=== PATIENT | male | born 1960 | race African-American/Black ===

== ENCOUNTER 2019-07-30 00:36 | Emergency (ER) | payer MEDICAID, MEDICARE ==
[~2019-07-30] VITALS: Ht 182.9 cm; Wt 84.0 kg
[2019-07-30] MEDS ORDERED: OXYMETAZOLINE HCL NASAL SPRAY 15ML BOTHNSTRLS SCH (01:00)
[2019-07-30] MEDS ORDERED: TRANEXAMIC ACID 1,000 MG/10 ML TP SCH (01:00)
[2019-07-30] MEDS ORDERED: CLONIDINE 0.2MG TABLET PO ONE (01:45)
[2019-07-30] MEDS ORDERED: AMLODIPINE 2.5MG TABLET PO ONE (01:45)
[2019-07-30 04:31] VITALS: BP 154/69
== END 2019-07-30 04:36 | disposition home or self-care (01) ==
LOC: ER 00:36
DX: R04.0 Epistaxis (principal); I10 Essential (primary) hypertension; Z94.0 Kidney transplant status
CPT/HCPCS: 30901; 99285

== ENCOUNTER 2019-11-18 09:16 | Emergency (ER) | payer MEDICARE ==
[~2019-11-18] VITALS: Ht 180.3 cm; Wt 91.0 kg
[2019-11-18 10:13] LABS: BASOPHILS % 0.6 % (0.0-2.0); EOSINOPHILS % 2.2 % (0.0-5.0); HEMOGLOBIN. 13.3 g/dL (14.0-18.0); LYMPHOCYTES % 18.6 % (20.0-50.0); MEAN CORPUSCULAR HEMOGLOBIN 31.6 pg (28.0-32.0); MEAN CORPUSCULAR VOLUME 94.8 fL (80.0-94.0); MEAN PLATELET VOLUME 9.9 fl (7.4-10.4); MONOCYTES % 6.6 % (2.0-8.0); PLATELET 250 x1000/uL (130-400); RED BLOOD CELL COUNT 4.23 mill/uL (4.7-6.1); RED CELL DISTRIBUTION WIDTH 15.4 % (11.6-14.6)
[2019-11-18 12:57] LABS: CHLORIDE 119 mEq/L (98-107)
[2019-11-18 13:02] LABS: PROTHROMBIN TIME 10.6 sec (9.6-11.0)
[2019-11-18] MEDS ORDERED: FUROSEMIDE 100MG/10ML VIAL IV STA (13:08)
[2019-11-18] MEDS ORDERED: CALCIUM CHLORIDE 1GM/10ML SYR IV ONE ×2 (13:15→13:46)
[2019-11-18] MEDS ORDERED: DEXTROSE 50% WATER 50ML SYRINGE IV ONE (13:15)
[2019-11-18] MEDS ORDERED: ALBUTEROL (0.083%) 2.5MG/3ML NEB HHN ONE (13:15)
[2019-11-18] MEDS ORDERED: SODIUM BICARBONATE 8.4% 1 MEQ/ML 50ML SYR IV ONE (13:15)
[2019-11-18] MEDS ORDERED: INSULIN REGULAR (HUMULIN R) 300UNITS/3ML IV ONE (13:15)
[2019-11-18] MEDS ORDERED: IPRATROPIUM/ALBUTEROL 0.5-3(2.5)MG/3ML NEB HHN PRN (14:00)
[2019-11-18] MEDS ORDERED: DOCUSATE SODIUM 100MG CAPSULE PO PRN (14:00)
[2019-11-18] MEDS ORDERED: HYDROCODONE/ACETAMINOPHEN 5/325MG TABLET PO PRN (14:00)
[2019-11-18] MEDS ORDERED: CLONIDINE 0.1MG TABLET PO PRN (14:00)
[2019-11-18] MEDS ORDERED: ONDANSETRON HCL 4MG/2ML INJ IV PRN (14:00)
[2019-11-18] MEDS ORDERED: ACETAMINOPHEN 325MG TABLET PO PRN (14:00)
[2019-11-18 14:35] VITALS: BP 238/89
== END 2019-11-18 14:39 | disposition left against medical advice (07) ==
LOC: ER 09:16 → ENRESERV 14:17 → ER 14:39 → CANBEDREQ 19:28
DX: I82.629 Acute embolism and thrombosis of deep veins of unspecified upper extremity (principal); I12.0 Hypertensive chronic kidney disease with stage 5 chronic kidney disease or end stage renal disease; N18.6 End stage renal disease; E87.5 Hyperkalemia; Z98.890 Other specified postprocedural states
CPT/HCPCS: 36415; 80053; 82962; 85025; 85610; 93005; 93971; 96374; 96375; 99291; J1815; J1940; J3490

== ENCOUNTER 2020-02-06 03:02 | Inpatient (IN) | payer MEDICARE ==
[~2020-02-06] VITALS: Ht 195.6 cm; Wt 84.9 kg
[2020-02-06] VITALS (12 sets, daily range): BP systolic 157–193; BP diastolic 97–115
[2020-02-06] MEDS ORDERED: PIPERACILLIN/TAZ 3.375G PREMIX 50 ML IV ONE (03:30)
[2020-02-06] MEDS ORDERED: AZITHROMYCIN 500 MG in DEXT 5% WATER 250 ML IV ONE (03:30)
[2020-02-06] MEDS ORDERED: VANCOMYCIN 1 G PREMIX 200 ML IV ONE (03:30)
[2020-02-06 04:00] LABS: CHLORIDE 101 mEq/L (98-107)
[2020-02-06 04:09] LABS: BASOPHILS % 1.2 % (0.0-2.0); EOSINOPHILS % 2.8 % (0.0-5.0); LYMPHOCYTES % 16.1 % (20.0-50.0); MEAN CORPUSCULAR HEMOGLOBIN 30.9 pg (28.0-32.0); MEAN CORPUSCULAR VOLUME 92.3 fL (80.0-94.0); MEAN PLATELET VOLUME 8.4 fl (7.4-10.4); MONOCYTES % 10.3 % (2.0-8.0); NEUTROPHILS % 69.6 % (40.0-76.0); PLATELET 253 x1000/uL (130-400); RED BLOOD CELL COUNT 2.59 mill/uL (4.7-6.1); RED CELL DISTRIBUTION WIDTH 13.8 % (11.6-14.6)
[2020-02-06] MEDS ORDERED: ASPIRIN 81MG TABLET PO ONE (04:30)
[2020-02-06] MEDS ORDERED: ONDANSETRON HCL 4MG/2ML INJ IV ONE (04:30)
[2020-02-06] MEDS ORDERED: LORAZEPAM 2MG/ML CPJ IV ONE (04:30)
[2020-02-06 08:37] LABS: EOSINOPHILS % 2.5 % (0.0-5.0); HEMATOCRIT. 23.4 % (42.0-52.0); HEMOGLOBIN. 7.8 g/dL (14.0-18.0); LYMPHOCYTES % 22.8 % (20.0-50.0); MEAN CORPUSCULAR HEMOGLOBIN 30.4 pg (28.0-32.0); MEAN CORPUSCULAR VOLUME 91.7 fL (80.0-94.0); MEAN PLATELET VOLUME 8.2 fl (7.4-10.4); MONOCYTES % 11.5 % (2.0-8.0); NEUTROPHILS % 62.2 % (40.0-76.0); PLATELET 250 x1000/uL (130-400); RED BLOOD CELL COUNT 2.56 mill/uL (4.7-6.1)
[2020-02-06] MEDS ORDERED: LOSA100T32 PO (08:56)
[2020-02-06] MEDS ORDERED: SEVE800T8 PO (08:56)
[2020-02-06] MEDS ORDERED: CALC668T PO (08:56)
[2020-02-06] MEDS ORDERED: FOLI0.8T23 PO (08:56)
[2020-02-06] MEDS ORDERED: ACETAMINOPHEN 325MG TABLET PO PRN (10:00)
[2020-02-06] MEDS ORDERED: MAGNESIUM/ALUMINUM HYDROXIDE/SIMETHICONE 30ML UDC PO PRN (10:00)
[2020-02-06] MEDS ORDERED: GUAIFENESIN 200MG/10ML SUGAR FREE UDC PO PRN (10:00)
[2020-02-06] MEDS ORDERED: ONDANSETRON HCL 4MG/2ML INJ IV PRN (10:00)
[2020-02-06] MEDS ORDERED: PIPERACILLIN/TAZOBACTAM 3.375 G/VIAL IV SCH (14:00)
[2020-02-06 14:15] LABS: BG BASE EXCESS 3.5 mmol/L (-2.0-2.0); BG CARBOXYHEMOGLOBIN 0.3 % (0.5-1.5); BG DEOXYHEMOGLOBIN 1.7 % (0.0-5.0); BG FRACTION INSPIRED OXYGEN 100; BG HCO3 ACT 28.1 mmol/L (22.0-26.0); BG METHEMOGLOBIN 0.3 % (0.0-1.5); BG OXYGEN SATURATION 98.3 % (92.0-98.5); BG OXYHEMOGLOBIN 97.7 % (94.0-97.0); BG PCO2 42.8 mmHg (35.0-45.0); BG PH 7.435 (7.350-7.450); BG PO2 130.4 mmHg (75.0-100.0); BG TOTAL HEMOGLOBIN 8.8 g/dL (12.0-18.0); BG VENT MODE MASK - NRB
[2020-02-06] MEDS: SODIUM CHLORIDE 0.9% INJ 3ML FLUSH IVF SCH ×2 (14:57→21:47)
[2020-02-06] MEDS: PIPERACILLIN/TAZOBACTAM 2.25 G in DEXTROSE 5% WATER 50 ML IV SCH ×2 (15:04→23:38)
[2020-02-06] MEDS ORDERED: IPRATROPIUM/ALBUTEROL 0.5-3(2.5)MG/3ML NEB HHN SCH (16:00)
[2020-02-06] MEDS: IPRATROPIUM/ALBUTEROL 0.5-3(2.5)MG/3ML NEB ORI SCH ×2 (17:42→21:46)
[2020-02-06] MEDS ORDERED: VANCOMYCIN 1 G PREMIX 200 ML IV SCH (21:00)
[2020-02-06] MEDS ORDERED: ZOLPIDEM TARTRATE 5MG TABLET PO PRN (21:00)
[2020-02-06] MEDS ORDERED: ATORVASTATIN CALCIUM 40MG TABLET PO SCH (21:00)
[2020-02-06] MEDS: METOPROLOL TARTRATE 25MG TABLET PO SCH (21:47)
[2020-02-06] MEDS: AMLODIPINE 2.5MG TABLET PO SCH (21:47)
[2020-02-06 23:56] LABS: HEMATOCRIT 31.2 % (42.0-52.0); HEMOGLOBIN 10.5 g/dL (14.0-18.0)
[2020-02-07] VITALS: BP 123/74
[2020-02-07] MEDS: IPRATROPIUM/ALBUTEROL 0.5-3(2.5)MG/3ML NEB ORI SCH ×6 (00:39→20:54)
[2020-02-07 04:00] VITALS: BP 131/83
[2020-02-07] MEDS: PIPERACILLIN/TAZOBACTAM 2.25 G in DEXTROSE 5% WATER 50 ML IV SCH ×3 (05:52→21:05)
[2020-02-07] MEDS: SODIUM CHLORIDE 0.9% INJ 3ML FLUSH IVF SCH ×3 (05:52→21:05)
[2020-02-07 05:55] LABS: BASOPHILS % 0.8 % (0.0-2.0); EOSINOPHILS % 1.3 % (0.0-5.0); HEMATOCRIT. 27.4 % (42.0-52.0); HEMOGLOBIN. 9.4 g/dL (14.0-18.0); LYMPHOCYTES % 24.3 % (20.0-50.0); MEAN CORPUSCULAR VOLUME 90.4 fL (80.0-94.0); MEAN PLATELET VOLUME 8.1 fl (7.4-10.4); MONOCYTES % 7.4 % (2.0-8.0); NEUTROPHILS % 66.2 % (40.0-76.0); PLATELET 285 x1000/uL (130-400); RED BLOOD CELL COUNT 3.03 mill/uL (4.7-6.1); RED CELL DISTRIBUTION WIDTH 13.7 % (11.6-14.6)
[2020-02-07 08:00] VITALS: BP 143/80
[2020-02-07] MEDS: METOPROLOL TARTRATE 25MG TABLET PO SCH ×2 (08:29→21:05)
[2020-02-07] MEDS: AMLODIPINE 2.5MG TABLET PO SCH ×2 (08:29→21:05)
[2020-02-07] MEDS: ACETAMINOPHEN 325MG TABLET PO PRN ×2 (08:29→21:13)
[2020-02-07 12:29] VITALS: BP 134/90
[2020-02-07] MEDS: FUROSEMIDE 40MG/4ML VIAL IVP SCH (15:09)
[2020-02-07 16:00] VITALS: BP 152/99
[2020-02-07 20:41] VITALS: BP 151/86
[2020-02-08 00:45] VITALS: BP 131/81
[2020-02-08] MEDS: IPRATROPIUM/ALBUTEROL 0.5-3(2.5)MG/3ML NEB ORI SCH ×5 (00:51→21:05)
[2020-02-08 04:00] VITALS: BP 168/92
[2020-02-08] MEDS: PIPERACILLIN/TAZOBACTAM 2.25 G in DEXTROSE 5% WATER 50 ML IV SCH ×3 (05:08→21:03)
[2020-02-08] MEDS: SODIUM CHLORIDE 0.9% INJ 3ML FLUSH IVF SCH ×3 (05:08→21:04)
[2020-02-08] MEDS: CLONIDINE 0.1MG TABLET PO PRN (05:08)
[2020-02-08 06:42] LABS: LDL CHOLESTEROL 106 mg/dL (5-100)
[2020-02-08 06:43] LABS: CREATINE KINASE 79 IU/L (39-308)
[2020-02-08 06:45] LABS: HDL CHOLESTEROL 55 mg/dL (40-59)
[2020-02-08 06:46] LABS: CREATINE KINASE MB FRACTION < 1.0 ng/mL (0.5-3.6)
[2020-02-08 08:41] VITALS: BP 129/83
[2020-02-08] MEDS: FUROSEMIDE 40MG/4ML VIAL IVP SCH (09:13)
[2020-02-08] MEDS: METOPROLOL TARTRATE 25MG TABLET PO SCH ×2 (09:14→20:50)
[2020-02-08] MEDS: AMLODIPINE 2.5MG TABLET PO SCH ×2 (09:14→20:50)
[2020-02-08 12:08] VITALS: BP 137/86
[2020-02-08 16:02] VITALS: BP 149/91
[2020-02-08 20:00] VITALS: BP 162/97
[2020-02-09] VITALS: BP 150/94
[2020-02-09] MEDS: IPRATROPIUM/ALBUTEROL 0.5-3(2.5)MG/3ML NEB ORI SCH ×6 (00:40→21:07)
[2020-02-09 04:00] VITALS: BP 155/98
[2020-02-09] MEDS: PIPERACILLIN/TAZOBACTAM 2.25 G in DEXTROSE 5% WATER 50 ML IV SCH ×3 (05:20→23:11)
[2020-02-09] MEDS: SODIUM CHLORIDE 0.9% INJ 3ML FLUSH IVF SCH ×3 (05:21→23:11)
[2020-02-09 06:15] LABS: BASOPHILS % 0.8 % (0.0-2.0); EOSINOPHILS % 3.9 % (0.0-5.0); HEMATOCRIT. 28.2 % (42.0-52.0); HEMOGLOBIN. 9.6 g/dL (14.0-18.0); LYMPHOCYTES % 22.9 % (20.0-50.0); MEAN CORPUSCULAR HEMOGLOBIN 31.1 pg (28.0-32.0); MEAN CORPUSCULAR VOLUME 91.3 fL (80.0-94.0); MEAN PLATELET VOLUME 8.3 fl (7.4-10.4); MONOCYTES % 10.5 % (2.0-8.0); NEUTROPHILS % 61.9 % (40.0-76.0); PLATELET 293 x1000/uL (130-400); RED BLOOD CELL COUNT 3.09 mill/uL (4.7-6.1); RED CELL DISTRIBUTION WIDTH 14.3 % (11.6-14.6)
[2020-02-09 08:00] VITALS: BP 150/82
[2020-02-09] MEDS: FUROSEMIDE 40MG/4ML VIAL IVP SCH (08:10)
[2020-02-09] MEDS: AMLODIPINE 2.5MG TABLET PO SCH (08:12)
[2020-02-09] MEDS: METOPROLOL TARTRATE 25MG TABLET PO SCH (08:16)
[2020-02-09 12:00] VITALS: BP 161/84
[2020-02-09 16:22] VITALS: BP 145/82
[2020-02-09 20:00] VITALS: BP 164/81
[2020-02-09] MEDS: METOPROLOL TARTRATE 50MG TABLET PO SCH (20:15)
[2020-02-09] MEDS: AMLODIPINE 5MG TABLET PO SCH (20:15)
[2020-02-09] MEDS ORDERED: VANCOMYCIN 500 MG PREMIX 100 ML IV SCH (21:00)
[2020-02-10] VITALS: BP 158/87
[2020-02-10] MEDS: IPRATROPIUM/ALBUTEROL 0.5-3(2.5)MG/3ML NEB ORI SCH ×4 (00:21→12:21)
[2020-02-10 04:00] VITALS: BP 149/95
[2020-02-10] MEDS: PIPERACILLIN/TAZOBACTAM 2.25 G in DEXTROSE 5% WATER 50 ML IV SCH (05:07)
[2020-02-10] MEDS: SODIUM CHLORIDE 0.9% INJ 3ML FLUSH IVF SCH (05:09)
[2020-02-10 08:00] VITALS: BP 177/112
[2020-02-10] MEDS: FUROSEMIDE 40MG/4ML VIAL IVP SCH (08:39)
[2020-02-10] MEDS: AMLODIPINE 5MG TABLET PO SCH (08:44)
[2020-02-10] MEDS: METOPROLOL TARTRATE 50MG TABLET PO SCH (08:44)
[2020-02-10] MEDS: CLONIDINE 0.1MG TABLET PO PRN (10:28)
[2020-02-10] MEDS ORDERED: LOSARTAN POTASSIUM 50 MG TABLET PO SCH (10:30)
[2020-02-10 12:24] VITALS: BP 129/88
== END 2020-02-10 13:26 | disposition home or self-care (01) | DRG 682 ==
LOC: ER 03:02 → 7EST 03:40 → ENRESERV 07:48 → 7EST 12:10 → 6WST 17:26
PROVIDERS: ADMIT Internal Medicine; ATTEND Internal Medicine
PROC: 30233N1 Transfusion of Nonautologous Red Blood Cells into Peripheral Vein, Percutaneous Approach (ICD-10-PCS; principal; 2020-02-06)
DX: N18.6 End stage renal disease (principal); I50.23 Acute on chronic systolic (congestive) heart failure; J18.9 Pneumonia, unspecified organism; J96.21 Acute and chronic respiratory failure with hypoxia; I13.2 Hypertensive heart and chronic kidney disease with heart failure and with stage 5 chronic kidney disease, or end stage renal disease; E46 Unspecified protein-calorie malnutrition; J44.0 Chronic obstructive pulmonary disease with (acute) lower respiratory infection; J44.1 Chronic obstructive pulmonary disease with (acute) exacerbation; I42.9 Cardiomyopathy, unspecified; I27.20 Pulmonary hypertension, unspecified; F17.200 Nicotine dependence, unspecified, uncomplicated; D64.9 Anemia, unspecified; Z20.828 Contact with and (suspected) exposure to other viral communicable diseases; I35.0 Nonrheumatic aortic (valve) stenosis; Z99.2 Dependence on renal dialysis; Z68.22 Body mass index [BMI] 22.0-22.9, adult; Z79.899 Other long term (current) drug therapy
CPT/HCPCS: 36415; 36600; 71045; 80048; 80053; 80061; 80202; 82375; 82550; 82553; 82805; 83605; 83735; 83880; 84484; 85014; 85018; 85025; 86850; 86900; 86920; 87635; 93005; 93306; 99291; J0456; J1940; J2060; J2405; J2543; J3370; J7060; P9016

== ENCOUNTER 2020-03-04 10:24 | Emergency (ER) | payer MEDICARE ==
[~2020-03-04] VITALS: Ht 182.9 cm; Wt 84.0 kg
[~2020-03-04 10:24] MED LIST: CALC668T PO; FOLI0.8T23 PO; LOSA100T32 PO; SEVE800T8 PO
[2020-03-04 12:52] VITALS: BP 163/103
== END 2020-03-04 12:53 | disposition home or self-care (01) ==
LOC: ER 10:38
DX: E87.70 Fluid overload, unspecified (principal); I12.0 Hypertensive chronic kidney disease with stage 5 chronic kidney disease or end stage renal disease; N18.6 End stage renal disease; N18.9 Chronic kidney disease, unspecified; Z99.2 Dependence on renal dialysis
CPT/HCPCS: 71045; 93005; 99283

== ENCOUNTER → 2020-04-20 | Outpatient (CLI) | payer MEDICARE, MEDICAID | END | disposition home or self-care (01) | LOC: RAD 12:29 | PROVIDERS: ATTEND Internal Medicine Cardiovascular Disease | DX: I11.9 Hypertensive heart disease without heart failure (principal) | CPT/HCPCS: 71045 ==

== ENCOUNTER → 2020-04-21 | Outpatient (CLI) | payer MEDICARE, MEDICAID | END | disposition home or self-care (01) | LOC: LAB 08:30 | PROVIDERS: ATTEND Internal Medicine Nephrology | DX: Z20.828 Contact with and (suspected) exposure to other viral communicable diseases (principal); N20.0 Calculus of kidney; N18.9 Chronic kidney disease, unspecified | CPT/HCPCS: 87426 ==

== ENCOUNTER → 2020-04-22 | Outpatient (CLI) | payer MEDICARE, MEDICAID | END | disposition home or self-care (01) | LOC: US 10:07 | PROVIDERS: ATTEND Internal Medicine Nephrology | DX: N18.9 Chronic kidney disease, unspecified (principal); J90 Pleural effusion, not elsewhere classified; Z90.5 Acquired absence of kidney | CPT/HCPCS: 76770 ==

== ENCOUNTER → 2020-08-24 | Outpatient (CLI) | payer MEDICARE, MEDICAID ==
[~2020-08-24] MED LIST changes: +AMI2 PO; +ASPI-1497 PO; +CINA30 PO; +COR3 PO; +DOCU-138 PO; +FAMO-135 PO; +FOLI1TAB63 PO; +P20 PO; +SERT50TA PO
== END | disposition home or self-care (01) ==
LOC: RAD 11:44
PROVIDERS: ATTEND Internal Medicine Nephrology
DX: R06.02 Shortness of breath (principal); I51.7 Cardiomegaly; Z99.2 Dependence on renal dialysis
CPT/HCPCS: 71046

== ENCOUNTER 2021-11-21 18:25 | Inpatient (IN) | payer MEDICARE, MEDICAID ==
[~2021-11-21] VITALS: Ht 182.9 cm; Wt 74.8 kg
[~2021-11-21 18:25] MED LIST changes: +APIX2.5T MT; +AZIT250T12 PO; +CARV25TA47 MT; +CELE200C MT; +CLON0.2T PO; -COR3 PO; -DOCU-138 PO; +HYDR-4135 MT
[2021-11-21] MEDS ORDERED: DILTIAZEM HCL 5MG/ML 5ML VIAL IV ONE ×2 (19:45→21:30)
[2021-11-21] MEDS ORDERED: VANCOMYCIN 1G PREMIX 200 ML IV ONE (19:45)
[2021-11-21] MEDS ORDERED: SODIUM CHLORIDE 0.9% 1000ML BAG (SEPSIS BOLUS) IV ONE (19:45)
[2021-11-21] MEDS ORDERED: PIPERACILLIN/TAZ 3.375G PREMIX 50 ML IV ONE (19:45)
[2021-11-21 20:52] LABS: BASOPHILS % 1.3 % (0.0-2.0); EOSINOPHILS % 1.9 % (0.0-5.0); HEMATOCRIT. 30.4 % (42.0-52.0); HEMOGLOBIN. 10.3 g/dL (14.0-18.0); LYMPHOCYTES % 16.1 % (20.0-50.0); MEAN CORPUSCULAR VOLUME 91.8 fL (80.0-94.0); MEAN PLATELET VOLUME 8.3 fl (7.4-10.4); MONOCYTES % 6.9 % (2.0-8.0); NEUTROPHILS % 73.8 % (40.0-76.0); PLATELET 213 x1000/uL (130-400); RED BLOOD CELL COUNT 3.32 mill/uL (4.7-6.1); RED CELL DISTRIBUTION WIDTH 19.6 % (11.6-14.6)
[2021-11-21 21:03] LABS: CHLORIDE 96 mEq/L (98-107)
[2021-11-21] MEDS ORDERED: VANCOMYCIN 1G PREMIX 200 ML IV NR (22:00)
[2021-11-21] MEDS ORDERED: PIPERACILLIN/TAZ 3.375G PREMIX 50 ML IV NR (22:00)
[2021-11-22] MEDS ORDERED: CLONIDINE 0.1MG TABLET PO PRN (00:45)
[2021-11-22] MEDS ORDERED: DIPHENHYDRAMINE 50MG/ML VIAL IV PRN (00:45)
[2021-11-22] MEDS ORDERED: ONDANSETRON HCL 4MG/2ML INJ IV PRN (00:45)
[2021-11-22] MEDS ORDERED: ZOLPIDEM TARTRATE 5MG TABLET PO PRN (00:45)
[2021-11-22] MEDS ORDERED: ACETAMINOPHEN 325MG TABLET PO PRN ×2 (00:45)
[2021-11-22] MEDS ORDERED: ASPIRIN 81MG TABLET PO ONE (01:00)
[2021-11-22] MEDS: SODIUM CHLORIDE 0.9% INJ 3ML FLUSH IVF SCH ×3 (06:02→21:44)
[2021-11-22] MEDS: HYDRALAZINE 20MG/ML VIAL IV PRN ×2 (06:14→06:50)
[2021-11-22] MEDS ORDERED: DILTIAZEM HCL 5MG/ML 10ML VIAL IV NR (08:45)
[2021-11-22 09:00] VITALS: BP 145/111
[2021-11-22] MEDS ORDERED: CARVEDILOL 12.5MG TABLET PO SCH (09:00)
[2021-11-22] MEDS ORDERED: DILTIAZEM HCL 5MG/ML 5ML VIAL IV NR (09:00)
[2021-11-22] MEDS: LOSARTAN POTASSIUM 100 MG TABLET PO SCH (10:49)
[2021-11-22] MEDS: CINACALCET HCL 30MG TABLET PO SCH (10:50)
[2021-11-22 12:00] VITALS: BP 124/92
[2021-11-22] MEDS ORDERED: CLONIDINE 0.2MG TABLET PO SCH (14:00)
[2021-11-22] MEDS ORDERED: CARVEDILOL 12.5MG TABLET PO NR (14:30)
[2021-11-22] MEDS ORDERED: DILTIAZEM HCL 5MG/ML 5ML VIAL IV PRN (14:30)
[2021-11-22] MEDS ORDERED: CLONIDINE 0.2MG TABLET PO PRN (14:53)
[2021-11-22 15:14] VITALS: BP 145/111
[2021-11-22] MEDS: ASPIRIN 325MG EC TABLET PO SCH (15:41)
[2021-11-22 16:00] VITALS: BP 136/94
[2021-11-22] MEDS ORDERED: DILTIAZEM HCL 60MG TABLET PO SCH (18:00)
[2021-11-22] MEDS: SEVELAMER CARBONATE 800 MG TABLET PO SCH (18:02)
[2021-11-22] MEDS: DILTIAZEM HCL 60MG TABLET PO SCH (18:02)
[2021-11-22 20:00] VITALS: BP 115/83
[2021-11-22] MEDS ORDERED: FAMOTIDINE 20MG TABLET PO SCH (21:00)
[2021-11-22] MEDS: HYDRALAZINE HCL 100MG TABLET PO SCH (21:42)
[2021-11-22] MEDS: CLONIDINE 0.1MG TABLET PO SCH (21:42)
[2021-11-22] MEDS: CARVEDILOL 12.5MG TABLET PO SCH (21:43)
[2021-11-23] VITALS: BP 111/77
[2021-11-23 04:00] VITALS: BP 118/91
[2021-11-23] MEDS: CLONIDINE 0.1MG TABLET PO SCH ×2 (05:27→14:00)
[2021-11-23] MEDS: SODIUM CHLORIDE 0.9% INJ 3ML FLUSH IVF SCH ×2 (05:28→14:00)
[2021-11-23] MEDS: DILTIAZEM HCL 60MG TABLET PO SCH ×3 (05:28→12:00)
[2021-11-23 08:00] VITALS: BP 106/61
[2021-11-23] MEDS: CARVEDILOL 12.5MG TABLET PO SCH (09:00)
[2021-11-23] MEDS ORDERED: FOLIC ACID/VITAMIN B COMP W-C TABLET PO SCH (09:00)
[2021-11-23] MEDS: HYDRALAZINE HCL 100MG TABLET PO SCH (09:00)
[2021-11-23] MEDS: LOSARTAN POTASSIUM 100 MG TABLET PO SCH (09:00)
[2021-11-23] MEDS ORDERED: LOSARTAN POTASSIUM 100 MG TABLET PO SCH (09:00)
[2021-11-23] MEDS ORDERED: ASPIRIN 81MG TABLET PO SCH (09:00)
[2021-11-23] MEDS: SEVELAMER CARBONATE 800 MG TABLET PO SCH ×2 (09:05→13:28)
[2021-11-23] MEDS: ASPIRIN 325MG EC TABLET PO SCH (09:05)
[2021-11-23] MEDS: CINACALCET HCL 30MG TABLET PO SCH (09:05)
[2021-11-23 12:00] VITALS: BP 115/53
[2021-11-23 16:00] VITALS: BP 136/93
[2021-11-23 16:19] LABS: BASOPHILS % 1.1 % (0.0-2.0); EOSINOPHILS % 3.9 % (0.0-5.0); HEMATOCRIT. 32.6 % (42.0-52.0); HEMOGLOBIN. 10.8 g/dL (14.0-18.0); LYMPHOCYTES % 15.8 % (20.0-50.0); MEAN CORPUSCULAR HEMOGLOBIN 31.1 pg (28.0-32.0); MEAN CORPUSCULAR VOLUME 93.5 fL (80.0-94.0); MEAN PLATELET VOLUME 8.7 fl (7.4-10.4); MONOCYTES % 10.9 % (2.0-8.0); NEUTROPHILS % 68.3 % (40.0-76.0); PLATELET 221 x1000/uL (130-400); RED BLOOD CELL COUNT 3.48 mill/uL (4.7-6.1); RED CELL DISTRIBUTION WIDTH 20.3 % (11.6-14.6)
[2021-11-23 16:33] LABS: CHLORIDE 98 mEq/L (98-107)
== END 2021-11-23 16:07 | disposition home or self-care (01) | DRG 308 ==
LOC: ER 18:25 → MICUSO 23:43 → 7WST 11-22 09:25
PROVIDERS: ADMIT Internal Medicine; ATTEND Internal Medicine
PROC: 5A1D70Z Performance of Urinary Filtration, Intermittent, Less than 6 Hours Per Day (ICD-10-PCS; principal; 2021-11-23)
DX: I47.1 Supraventricular tachycardia (principal); N18.6 End stage renal disease; I12.0 Hypertensive chronic kidney disease with stage 5 chronic kidney disease or end stage renal disease; T82.898A Other specified complication of vascular prosthetic devices, implants and grafts, initial encounter; I48.0 Paroxysmal atrial fibrillation; E11.22 Type 2 diabetes mellitus with diabetic chronic kidney disease; D64.9 Anemia, unspecified; J44.9 Chronic obstructive pulmonary disease, unspecified; Y83.2 Surgical operation with anastomosis, bypass or graft as the cause of abnormal reaction of the patient, or of later complication, without mention of misadventure at the time of the procedure; Z99.2 Dependence on renal dialysis; Z87.891 Personal history of nicotine dependence; Z90.5 Acquired absence of kidney; Z79.899 Other long term (current) drug therapy; Z79.82 Long term (current) use of aspirin; Y92.89 Other specified places as the place of occurrence of the external cause
CPT/HCPCS: 36415; 71045; 80053; 83605; 83880; 84145; 84484; 85025; 87070; 87077; 87186; 93005; 99291; C1893; J0360; J1200; J2543; J3370; J3490; J7030

== ENCOUNTER 2022-01-14 12:41 | Emergency (ER) | payer MEDICARE, MEDICAID ==
[~2022-01-14] VITALS: Ht 172.7 cm; Wt 78.0 kg
[2022-01-14 13:22] LABS: BASOPHILS % 1.2 % (0.0-2.0); EOSINOPHILS % 3.2 % (0.0-5.0); HEMATOCRIT. 23.7 % (42.0-52.0); HEMOGLOBIN. 7.9 g/dL (14.0-18.0); LYMPHOCYTES % 20.1 % (20.0-50.0); MEAN CORPUSCULAR HEMOGLOBIN 32.5 pg (28.0-32.0); MEAN CORPUSCULAR VOLUME 97.8 fL (80.0-94.0); MEAN PLATELET VOLUME 7.2 fl (7.4-10.4); NEUTROPHILS % 62.5 % (40.0-76.0); PLATELET 248 x1000/uL (130-400); RED BLOOD CELL COUNT 2.43 mill/uL (4.7-6.1); RED CELL DISTRIBUTION WIDTH 20.1 % (11.6-14.6)
[2022-01-14 13:26] LABS: CHLORIDE 100 mEq/L (98-107)
[2022-01-14] MEDS ORDERED: CEFEPIME HCL 1000MG/VIAL INJ IM ONE (15:30)
[2022-01-14] MEDS: CEFEPIME 1,000 MG in DEXTROSE 5% WATER 50 ML IV SCH ×2 (16:05→16:29)
[2022-01-14 16:21] VITALS: BP 142/78
== END 2022-01-14 16:49 | disposition home or self-care (01) ==
LOC: ER 12:41
DX: T82.838A Hemorrhage due to vascular prosthetic devices, implants and grafts, initial encounter (principal); E11.22 Type 2 diabetes mellitus with diabetic chronic kidney disease; I12.0 Hypertensive chronic kidney disease with stage 5 chronic kidney disease or end stage renal disease; N18.6 End stage renal disease; D63.1 Anemia in chronic kidney disease; Z99.2 Dependence on renal dialysis; Z79.82 Long term (current) use of aspirin; Y84.1 Kidney dialysis as the cause of abnormal reaction of the patient, or of later complication, without mention of misadventure at the time of the procedure; Y92.018 Other place in single-family (private) house as the place of occurrence of the external cause
CPT/HCPCS: 36415; 80053; 85025; 96372; 99283; J0692; J7060

== ENCOUNTER 2022-01-15 15:48 | Inpatient (IN) | payer MEDICARE, MEDICAID ==
[~2022-01-15] VITALS: Ht 193 cm; Wt 72.7 kg
[2022-01-15] MEDS ORDERED: TRANEXAMIC ACID 1,000 MG/10 ML TP ONE ×2 (16:15→17:00)
[2022-01-15] MEDS ORDERED: HYDROCODONE/ACETAMINOPHEN 5/325MG TABLET PO ONE (16:30)
[2022-01-15 16:47] LABS: EOSINOPHILS % 2.7 % (0.0-5.0); HEMATOCRIT. 23.9 % (42.0-52.0); HEMOGLOBIN. 7.9 g/dL (14.0-18.0); LYMPHOCYTES % 20.5 % (20.0-50.0); MEAN CORPUSCULAR HEMOGLOBIN 32.3 pg (28.0-32.0); MEAN CORPUSCULAR VOLUME 97.9 fL (80.0-94.0); MEAN PLATELET VOLUME 7.9 fl (7.4-10.4); MONOCYTES % 12.3 % (2.0-8.0); NEUTROPHILS % 63.5 % (40.0-76.0); PLATELET 250 x1000/uL (130-400); RED BLOOD CELL COUNT 2.44 mill/uL (4.7-6.1); RED CELL DISTRIBUTION WIDTH 19.9 % (11.6-14.6)
[2022-01-15 16:52] LABS: CHLORIDE 106 mEq/L (98-107); INR 1.2; PROTHROMBIN TIME 12.3 sec (9.6-11.0)
[2022-01-16] MEDS ORDERED: CLONIDINE 0.2MG TABLET PO PRN (01:00)
[2022-01-16] MEDS: HYDROCODONE/ACETAMINOPHEN 5/325MG TABLET PO PRN (02:21)
[2022-01-16 04:00] VITALS: BP 182/113
[2022-01-16] MEDS: HYDRALAZINE HCL 50MG TABLET PO SCH ×3 (06:23→21:27)
[2022-01-16] MEDS: CALCIUM ACETATE 667 MG TABLET PO SCH ×3 (07:40→17:40)
[2022-01-16 08:00] VITALS: BP 97/64
[2022-01-16] MEDS: AMIODARONE HCL 200 MG TABLET PO SCH (09:00)
[2022-01-16] MEDS: CARVEDILOL 12.5MG TABLET PO SCH ×2 (09:00→21:28)
[2022-01-16] MEDS: LOSARTAN POTASSIUM 100 MG TABLET PO SCH (09:00)
[2022-01-16] MEDS: SEVELAMER CARBONATE 800 MG TABLET PO SCH ×3 (09:26→18:33)
[2022-01-16] MEDS: FOLIC ACID/VITAMIN B COMP W-C TABLET PO SCH (09:27)
[2022-01-16] MEDS: ASPIRIN 81MG TABLET PO SCH (09:27)
[2022-01-16] MEDS: APIXABAN 2.5 MG TABLET PO SCH ×2 (09:27→21:25)
[2022-01-16] MEDS: CINACALCET HCL 30MG TABLET PO SCH (09:27)
[2022-01-16] MEDS: SERTRALINE HCL 50MG TABLET PO SCH (09:27)
[2022-01-16 12:00] VITALS: BP 147/90
[2022-01-16] MEDS: FAMOTIDINE 20MG TABLET PO SCH (13:45)
[2022-01-16 14:34] LABS: HEPATITIS B SURFACE ANTIGEN NEGATIVE
[2022-01-16 16:00] VITALS: BP 161/99
[2022-01-16 20:00] VITALS: BP 156/71
[2022-01-16] MEDS ORDERED: NALOXONE HCL 0.4MG/ML VIAL IV PRN (20:00)
[2022-01-16] MEDS ORDERED: EPOETIN ALFA-EPBX 4,000 UNIT/ML VIAL SUBCUT SCH (21:00)
[2022-01-16] MEDS: CEFEPIME 1,000 MG in DEXTROSE 5% WATER 50 ML IV SCH (21:24)
[2022-01-16 23:15] LABS: HEMATOCRIT 23.8 % (42.0-52.0); HEMOGLOBIN 7.4 g/dL (14.0-18.0)
[2022-01-17] VITALS: BP 137/92
[2022-01-17 04:00] VITALS: BP 132/94
[2022-01-17] MEDS: HYDRALAZINE HCL 50MG TABLET PO SCH ×3 (05:37→21:32)
[2022-01-17 08:00] VITALS: BP 118/72
[2022-01-17] MEDS: AMIODARONE HCL 200 MG TABLET PO SCH (09:11)
[2022-01-17] MEDS: ASPIRIN 81MG TABLET PO SCH (09:11)
[2022-01-17] MEDS: CINACALCET HCL 30MG TABLET PO SCH (09:11)
[2022-01-17] MEDS: SEVELAMER CARBONATE 800 MG TABLET PO SCH ×3 (09:11→16:41)
[2022-01-17] MEDS: FAMOTIDINE 20MG TABLET PO SCH (09:11)
[2022-01-17] MEDS: FOLIC ACID/VITAMIN B COMP W-C TABLET PO SCH (09:11)
[2022-01-17] MEDS: LOSARTAN POTASSIUM 100 MG TABLET PO SCH (09:12)
[2022-01-17] MEDS: APIXABAN 2.5 MG TABLET PO SCH ×2 (09:12→21:33)
[2022-01-17] MEDS: SERTRALINE HCL 50MG TABLET PO SCH (09:12)
[2022-01-17] MEDS: CARVEDILOL 12.5MG TABLET PO SCH ×2 (09:15→21:32)
[2022-01-17] MEDS: CALCIUM ACETATE 667 MG TABLET PO SCH ×3 (09:42→16:41)
[2022-01-17 12:00] VITALS: BP 138/90
[2022-01-17] MEDS: HYDROCODONE/ACETAMINOPHEN 5/325MG TABLET PO PRN (12:40)
[2022-01-17] MEDS: CEFEPIME 1,000 MG in DEXTROSE 5% WATER 50 ML IV SCH (14:04)
[2022-01-17 16:01] VITALS: BP 121/85
[2022-01-17 20:00] VITALS: BP 137/81
[2022-01-17 20:00] LABS: HEPATITIS B SURFACE ANTIGEN NEGATIVE
[2022-01-17] MEDS ORDERED: VANCOMYCIN 1GM PMX (XELLIA) 200 ML IV NR (22:30)
[2022-01-18 00:15] VITALS: BP 131/83
[2022-01-18 04:00] VITALS: BP 143/88
[2022-01-18] MEDS: HYDRALAZINE HCL 50MG TABLET PO SCH ×2 (06:16→14:44)
[2022-01-18 06:40] LABS: BASOPHILS % 1.6 % (0.0-2.0); EOSINOPHILS % 4.3 % (0.0-5.0); HEMATOCRIT. 22.9 % (42.0-52.0); HEMOGLOBIN. 7.8 g/dL (14.0-18.0); LYMPHOCYTES % 25.8 % (20.0-50.0); MEAN CORPUSCULAR HEMOGLOBIN 32.8 pg (28.0-32.0); MEAN CORPUSCULAR VOLUME 96.5 fL (80.0-94.0); MEAN PLATELET VOLUME 7.8 fl (7.4-10.4); MONOCYTES % 11.9 % (2.0-8.0); NEUTROPHILS % 56.4 % (40.0-76.0); PLATELET 212 x1000/uL (130-400); RED BLOOD CELL COUNT 2.37 mill/uL (4.7-6.1); RED CELL DISTRIBUTION WIDTH 19.3 % (11.6-14.6)
[2022-01-18 08:00] VITALS: BP 146/83
[2022-01-18] MEDS ORDERED: CEFEPIME 1,000 MG in DEXT 5% WATER 100 ML IV SCH (09:00)
[2022-01-18 12:00] VITALS: BP 120/72
[2022-01-18] MEDS: FAMOTIDINE 20MG TABLET PO SCH (12:23)
[2022-01-18] MEDS: SERTRALINE HCL 50MG TABLET PO SCH (12:23)
[2022-01-18] MEDS: AMIODARONE HCL 200 MG TABLET PO SCH (12:23)
[2022-01-18] MEDS: APIXABAN 2.5 MG TABLET PO SCH (12:23)
[2022-01-18] MEDS: CINACALCET HCL 30MG TABLET PO SCH (12:24)
[2022-01-18] MEDS: CALCIUM ACETATE 667 MG TABLET PO SCH (12:24)
[2022-01-18] MEDS: FOLIC ACID/VITAMIN B COMP W-C TABLET PO SCH (12:24)
[2022-01-18] MEDS: ASPIRIN 81MG TABLET PO SCH (12:24)
[2022-01-18] MEDS: SEVELAMER CARBONATE 800 MG TABLET PO SCH (12:25)
[2022-01-18] MEDS: CARVEDILOL 12.5MG TABLET PO SCH (12:30)
[2022-01-18] MEDS: LOSARTAN POTASSIUM 100 MG TABLET PO SCH (12:31)
[2022-01-18] MEDS ORDERED: CEFEPIME 1,000 MG in DEXTROSE 5% WATER 50 ML IV SCH (14:00)
[2022-01-18] MEDS ORDERED: VANCOMYCIN 500MG PREMIX 100 ML IV SCH (14:00)
[2022-01-18 15:34] VITALS: BP 105/64
[2022-01-18 15:50] VITALS: BP 105/64
== END 2022-01-18 17:00 | disposition home or self-care (01) | DRG 314 ==
LOC: ER 15:48 → EDBEDREQ 22:21 → MICUSO 01-16 00:57 → 8WST 01-16 03:18
PROVIDERS: ADMIT Internal Medicine; ATTEND Internal Medicine
DX: T82.838A Hemorrhage due to vascular prosthetic devices, implants and grafts, initial encounter (principal); E43 Unspecified severe protein-calorie malnutrition; N18.6 End stage renal disease; Z68.1 Body mass index [BMI] 19.9 or less, adult; I13.2 Hypertensive heart and chronic kidney disease with heart failure and with stage 5 chronic kidney disease, or end stage renal disease; I42.9 Cardiomyopathy, unspecified; E11.22 Type 2 diabetes mellitus with diabetic chronic kidney disease; D63.1 Anemia in chronic kidney disease; I50.9 Heart failure, unspecified; I08.0 Rheumatic disorders of both mitral and aortic valves; Z99.2 Dependence on renal dialysis; Y83.2 Surgical operation with anastomosis, bypass or graft as the cause of abnormal reaction of the patient, or of later complication, without mention of misadventure at the time of the procedure; Y92.89 Other specified places as the place of occurrence of the external cause
CPT/HCPCS: 36415; 80048; 80053; 85014; 85018; 85025; 86705; 86709; 86803; 86850; 86900; 87340; 96372; 99283; 99291; C1893; J0692; J0885; J3370; J7060

== ENCOUNTER 2022-11-27 19:43 | Inpatient (IN) | payer MEDICARE, MEDICAID ==
[~2022-11-27] VITALS: Ht 180.3 cm; Wt 74.4 kg
[~2022-11-27 19:43] MED LIST changes: -LOSA100T32 PO; +LOSA100T33 PO
[2022-11-27] MEDS ORDERED: PIPERACILLIN/TAZ 3.375G PREMIX 50 ML IV ONE (19:45)
[2022-11-27] MEDS ORDERED: ACETAMINOPHEN 325MG TABLET PO STA (19:45)
[2022-11-27] MEDS ORDERED: VANCOMYCIN 1G PREMIX 200 ML IV ONE (19:45)
[2022-11-27 21:29] LABS: CHLORIDE 102 mEq/L (98-107); INDEX HEMOLYSI 1 (1-3); INDEX ICTERIC 1 (1-4); INDEX LIPEMIC 1 (1-3); SODIUM 133 mEq/L (136-145)
[2022-11-27 21:30] LABS: HEMATOCRIT. 30.8 % (42.0-52.0); HEMOGLOBIN. 9.7 g/dL (14.0-18.0); MEAN CORPUSCULAR HEMOGLOBIN 29.3 pg (28.0-32.0); MEAN CORPUSCULAR HGB CONC 31.6 g/dL (31.0-37.0); MEAN CORPUSCULAR VOLUME 92.5 fL (80.0-94.0); MEAN PLATELET VOLUME 8.3 fl (7.4-10.4); PLATELET 138 x1000/uL (130-400); RED BLOOD CELL COUNT 3.33 mill/uL (4.7-6.1); RED CELL DISTRIBUTION WIDTH 17.2 % (11.6-14.6); WHITE BLOOD COUNT 8.2 x1000/uL (4.5-11.0)
[2022-11-27] MEDS ORDERED: SODIUM CHLORIDE 0.9% 1000ML BAG (SEPSIS BOLUS) IV ONE (21:30)
[2022-11-27 21:31] LABS: DIFFERENTIAL COMMENT 1
[2022-11-27 21:39] LABS: ALANINE AMINOTRANSFERASE 9 IU/L (13-61); ALBUMIN 2.2 g/dL (3.4-5.0); ASPARTATE AMINOTRANSFERASE 7 IU/L (15-37); BILIRUBIN TOTAL 0.6 mg/dL (0.1-1.0); CALCIUM 7.7 mg/dL (8.5-10.1); CARBON DIOXIDE 24 mEq/L (21-32); GLUCOSE 112 mg/dL (70-105); PROTEIN TOTAL 6.7 g/dL (6.0-8.3); UREA NITROGEN BLOOD 26 mg/dL (7-21)
[2022-11-27 21:44] LABS: CREATININE 6.5 mg/dL (0.6-1.3); TROPONIN I HIGH SENSITIVITY 108 ng/L (<78)
[2022-11-27 22:25] LABS: PLATELET ESTIMATE NORMAL
[2022-11-28 02:19] VITALS: BP 134/81; PULSE 104; RESP 18; TEMP 101.3
[2022-11-28 04:00] VITALS: BP 142/74; PULSE 82; RESP 19; TEMP 97.9
[2022-11-28] MEDS ORDERED: CLONIDINE 0.1MG TABLET PO PRN (04:45)
[2022-11-28] MEDS ORDERED: IPRATROPIUM/ALBUTEROL 0.5-3(2.5)MG/3ML NEB HHN PRN (04:45)
[2022-11-28] MEDS ORDERED: ONDANSETRON HCL 4MG/2ML INJ IV PRN (04:45)
[2022-11-28] MEDS ORDERED: MAGNESIUM/ALUMINUM HYDROXIDE/SIMETHICONE 30ML UDC PO PRN (04:45)
[2022-11-28] MEDS ORDERED: DOCUSATE SODIUM 100MG CAPSULE PO PRN (04:45)
[2022-11-28] MEDS ORDERED: GUAIFENESIN 200MG/10ML SUGAR FREE UDC PO PRN (04:45)
[2022-11-28] MEDS ORDERED: ACETAMINOPHEN 325MG TABLET PO PRN (04:45)
[2022-11-28 08:00] VITALS: BP 138/88; PULSE 78; RESP 17; TEMP 97.5
[2022-11-28] MEDS: ACETAMINOPHEN 325MG TABLET PO PRN (08:39)
[2022-11-28] MEDS: PIPERACILLIN/TAZOBACTAM 3.375 G in DEXTROSE 5% WATER 50 ML IV SCH ×2 (08:39→21:33)
[2022-11-28] MEDS: ENOXAPARIN 30MG/0.3ML SYR SUBCUT SCH (08:39)
[2022-11-28] MEDS ORDERED: VANCOMYCIN 750MG PREMIX 150 ML IV SCH (10:00)
[2022-11-28 10:22] LABS: INDEX HEMOLYSI 2 (1-3)
[2022-11-28 10:25] LABS: CREATINE KINASE 39 IU/L (39-308); CREATINE KINASE MB FRACTION < 1.0 ng/mL (0.5-3.6)
[2022-11-28 10:54] LABS: TROPONIN I HIGH SENSITIVITY 262 ng/L (<78)
[2022-11-28 12:00] VITALS: BP 136/88; PULSE 89; RESP 20; TEMP 96
[2022-11-28 16:00] VITALS: PULSE 87
[2022-11-28 17:54] LABS: INDEX HEMOLYSI 1 (1-3)
[2022-11-28 18:01] LABS: CREATINE KINASE 32 IU/L (39-308); CREATINE KINASE MB FRACTION < 1.0 ng/mL (0.5-3.6)
[2022-11-28 18:42] LABS: TROPONIN I HIGH SENSITIVITY 198 ng/L (<78)
[2022-11-28 20:00] VITALS: BP 158/89; PULSE 94; TEMP 97.9
[2022-11-28 22:03] LABS: PHOSPHORUS 4.2 mg/dL (2.5-4.9)
[2022-11-29] VITALS (16 sets, daily range): BP systolic 141–168; BP diastolic 64–103; PULSE 81–160; RESP 16–23; TEMP 97.1–101.1
[2022-11-29 06:32] LABS: HEMATOCRIT. 30.3 % (42.0-52.0); MEAN CORPUSCULAR HGB CONC 33.2 g/dL (31.0-37.0); MEAN CORPUSCULAR VOLUME 90.5 fL (80.0-94.0); MEAN PLATELET VOLUME 9.2 fl (7.4-10.4); PLATELET 135 x1000/uL (130-400); RED BLOOD CELL COUNT 3.35 mill/uL (4.7-6.1); RED CELL DISTRIBUTION WIDTH 17.7 % (11.6-14.6); WHITE BLOOD COUNT 10.5 x1000/uL (4.5-11.0)
[2022-11-29 06:41] LABS: DIFFERENTIAL COMMENT 1
[2022-11-29 06:44] LABS: CHLORIDE 99 mEq/L (98-107); INDEX HEMOLYSI 1 (1-3); INDEX ICTERIC 1 (1-4); INDEX LIPEMIC 1 (1-3); POTASSIUM 5.8 mEq/L (3.5-5.1); SODIUM 130 mEq/L (136-145)
[2022-11-29 07:00] LABS: ALANINE AMINOTRANSFERASE 7 IU/L (13-61); ALBUMIN 2.4 g/dL (3.4-5.0); ASPARTATE AMINOTRANSFERASE 6 IU/L (15-37); BILIRUBIN TOTAL 0.6 mg/dL (0.1-1.0); CALCIUM 8.2 mg/dL (8.5-10.1); CARBON DIOXIDE 24 mEq/L (21-32); GLUCOSE 86 mg/dL (70-105); PROTEIN TOTAL 7.4 g/dL (6.0-8.3); T4 FREE 1.23 ng/dL (0.76-1.46); UREA NITROGEN BLOOD 45 mg/dL (7-21)
[2022-11-29 07:06] LABS: CREATININE 10.3 mg/dL (0.6-1.3)
[2022-11-29 07:09] LABS: TROPONIN I HIGH SENSITIVITY 153 ng/L (<78)
[2022-11-29] MEDS: ENOXAPARIN 30MG/0.3ML SYR SUBCUT SCH (08:34)
[2022-11-29] MEDS: PIPERACILLIN/TAZOBACTAM 3.375 G in DEXTROSE 5% WATER 50 ML IV SCH ×2 (08:34→21:24)
[2022-11-29] MEDS: AMLODIPINE 5MG TABLET PO SCH (08:34)
[2022-11-29 11:20] LABS: HEPATITIS B SURFACE ANTIGEN NEGATIVE
[2022-11-29 11:46] LABS: HEPATITIS B CORE AB IGM NEGATIVE; HEPATITIS C VIR.AB 0.38 INDEXVAL (0.00-0.80)
[2022-11-29 11:48] LABS: HEPATITIS A AB IGM NEGATIVE (NEGATIVE)
[2022-11-29] MEDS: ACETAMINOPHEN 325MG TABLET PO PRN (12:17)
[2022-11-29] MEDS: CLONIDINE 0.2MG TABLET PO SCH ×2 (13:41→17:46)
[2022-11-29 14:58] LABS: TROPONIN I HIGH SENSITIVITY 132 ng/L (<78)
[2022-11-29 15:26] LABS: ANISOCYTOSIS 1+; PLATELET ESTIMATE NORMAL
[2022-11-30] VITALS: BP 140/97; PULSE 109; RESP 18; TEMP 97.3
[2022-11-30 04:00] VITALS: BP 133/83; PULSE 104; RESP 18; TEMP 96.9
[2022-11-30 08:00] VITALS: BP 121/79; PULSE 85; RESP 18; TEMP 97.9
[2022-11-30 08:18] LABS: HEMATOCRIT 28.2 % (42.0-52.0); HEMOGLOBIN 9.5 g/dL (14.0-18.0); MEAN CORPUSCULAR HGB CONC 33.5 g/dL (31.0-37.0); MEAN CORPUSCULAR VOLUME 89.5 fL (80.0-94.0); PLATELET 126 x1000/uL (130-400); RED BLOOD CELL COUNT 3.15 mill/uL (4.7-6.1); RED CELL DISTRIBUTION WIDTH 17.9 % (11.6-14.6); WHITE BLOOD COUNT 10.5 x1000/uL (4.5-11.0)
[2022-11-30 08:31] LABS: CHLORIDE 101 mEq/L (98-107); INDEX HEMOLYSI 1 (1-3); INDEX ICTERIC 1 (1-4); INDEX LIPEMIC 1 (1-3); POTASSIUM 4.9 mEq/L (3.5-5.1); SODIUM 134 mEq/L (136-145)
[2022-11-30 08:40] LABS: ALANINE AMINOTRANSFERASE 7 IU/L (13-61); ALBUMIN 2.3 g/dL (3.4-5.0); ASPARTATE AMINOTRANSFERASE 8 IU/L (15-37); BILIRUBIN TOTAL 0.6 mg/dL (0.1-1.0); CALCIUM 8.4 mg/dL (8.5-10.1); CARBON DIOXIDE 24 mEq/L (21-32); GLUCOSE 119 mg/dL (70-105); PROTEIN TOTAL 7.3 g/dL (6.0-8.3); UREA NITROGEN BLOOD 36 mg/dL (7-21)
[2022-11-30 08:56] LABS: CREATININE 8.6 mg/dL (0.6-1.3)
[2022-11-30] MEDS: CLONIDINE 0.2MG TABLET PO SCH ×4 (09:00→21:28)
[2022-11-30] MEDS: AMLODIPINE 5MG TABLET PO SCH ×2 (09:00→09:16)
[2022-11-30] MEDS: PIPERACILLIN/TAZOBACTAM 3.375 G in DEXTROSE 5% WATER 50 ML IV SCH (09:11)
[2022-11-30] MEDS: ENOXAPARIN 30MG/0.3ML SYR SUBCUT SCH (09:11)
[2022-11-30] MEDS: PANTOPRAZOLE SODIUM 40 MG/VIAL IV SCH (10:36)
[2022-11-30 12:00] VITALS: BP 138/91; PULSE 87; RESP 16; TEMP 97.7
[2022-11-30] MEDS ORDERED: MAGNESIUM 2 G PREMIX 50 ML IV SCH (12:00)
[2022-11-30 16:00] VITALS: BP 151/92; PULSE 82; RESP 19; TEMP 97.9
[2022-11-30] MEDS: CEFEPIME 1,000 MG in DEXTROSE 5% WATER 50 ML IV SCH (18:55)
[2022-11-30 20:00] VITALS: BP 162/70; PULSE 90; RESP 16; TEMP 97.9
[2022-11-30] MEDS: AMIODARONE HCL 200 MG TABLET PO SCH (21:00)
[2022-11-30] MEDS ORDERED: CEFEPIME HCL 1000MG/VIAL INJ IM SCH (21:00)
[2022-11-30] MEDS: METOPROLOL TARTRATE 50MG TABLET PO SCH (21:29)
[2022-12-01] VITALS: BP 137/65; PULSE 90; RESP 15; TEMP 97.7
[2022-12-01 04:00] VITALS: BP 133/46; PULSE 81; RESP 15; TEMP 97.9
[2022-12-01 07:05] LABS: HEMATOCRIT. 28.4 % (42.0-52.0); HEMOGLOBIN. 9.4 g/dL (14.0-18.0); MEAN CORPUSCULAR HEMOGLOBIN 29.6 pg (28.0-32.0); MEAN CORPUSCULAR HGB CONC 33.1 g/dL (31.0-37.0); MEAN CORPUSCULAR VOLUME 89.4 fL (80.0-94.0); MEAN PLATELET VOLUME 9.9 fl (7.4-10.4); PLATELET 145 x1000/uL (130-400); RED BLOOD CELL COUNT 3.17 mill/uL (4.7-6.1); RED CELL DISTRIBUTION WIDTH 18.1 % (11.6-14.6); WHITE BLOOD COUNT 9.8 x1000/uL (4.5-11.0)
[2022-12-01 07:10] LABS: DIFFERENTIAL COMMENT 1
[2022-12-01] MEDS: ACETAMINOPHEN 325MG TABLET PO PRN (07:27)
[2022-12-01 07:43] LABS: CHLORIDE 99 mEq/L (98-107); INDEX HEMOLYSI 1 (1-3); INDEX ICTERIC 1 (1-4); INDEX LIPEMIC 1 (1-3); POTASSIUM 5.4 mEq/L (3.5-5.1); SODIUM 133 mEq/L (136-145)
[2022-12-01 07:51] LABS: ALANINE AMINOTRANSFERASE 8 IU/L (13-61); ALBUMIN 2.2 g/dL (3.4-5.0); ASPARTATE AMINOTRANSFERASE 8 IU/L (15-37); BILIRUBIN TOTAL 0.6 mg/dL (0.1-1.0); CALCIUM 8.6 mg/dL (8.5-10.1); CARBON DIOXIDE 24 mEq/L (21-32); GLUCOSE 104 mg/dL (70-105); PHOSPHORUS 4.3 mg/dL (2.5-4.9); PROTEIN TOTAL 7.3 g/dL (6.0-8.3); UREA NITROGEN BLOOD 55 mg/dL (7-21)
[2022-12-01 07:54] LABS: CREATININE 10.4 mg/dL (0.6-1.3)
[2022-12-01] MEDS: PANTOPRAZOLE SODIUM 40 MG/VIAL IV SCH (09:40)
[2022-12-01] MEDS: CLONIDINE 0.2MG TABLET PO SCH ×2 (09:40→17:37)
[2022-12-01] MEDS: METOPROLOL TARTRATE 50MG TABLET PO SCH ×2 (09:41→20:18)
[2022-12-01] MEDS: AMIODARONE HCL 200 MG TABLET PO SCH ×2 (09:41→20:17)
[2022-12-01] MEDS: ENOXAPARIN 30MG/0.3ML SYR SUBCUT SCH (09:52)
[2022-12-01] MEDS: CEFEPIME 1,000 MG in DEXTROSE 5% WATER 50 ML IV SCH (15:56)
[2022-12-02] VITALS (11 sets, daily range): BP systolic 141–167; BP diastolic 74–87; PULSE 50–61; RESP 16–18; TEMP 97.6–98; O2SAT 97
[2022-12-02 06:50] LABS: PLATELET ESTIMATE NORMAL
[2022-12-02 08:02] LABS: HEMATOCRIT. 30.2 % (42.0-52.0); HEMOGLOBIN. 9.6 g/dL (14.0-18.0); MEAN CORPUSCULAR HEMOGLOBIN 29.2 pg (28.0-32.0); MEAN CORPUSCULAR HGB CONC 31.7 g/dL (31.0-37.0); MEAN CORPUSCULAR VOLUME 92.2 fL (80.0-94.0); MEAN PLATELET VOLUME 10.1 fl (7.4-10.4); PLATELET 129 x1000/uL (130-400); RED BLOOD CELL COUNT 3.27 mill/uL (4.7-6.1); RED CELL DISTRIBUTION WIDTH 17.9 % (11.6-14.6); WHITE BLOOD COUNT 8.3 x1000/uL (4.5-11.0)
[2022-12-02 08:07] LABS: DIFFERENTIAL COMMENT 1
[2022-12-02 08:09] LABS: POTASSIUM 5.4 mEq/L (3.5-5.1)
[2022-12-02 08:16] LABS: CALCIUM 8.4 mg/dL (8.5-10.1)
[2022-12-02 08:43] LABS: CREATININE 11.7 mg/dL (0.6-1.3)
[2022-12-02] MEDS: AMIODARONE HCL 200 MG TABLET PO SCH ×2 (08:58→21:18)
[2022-12-02] MEDS: CLONIDINE 0.2MG TABLET PO SCH ×2 (08:58→17:45)
[2022-12-02] MEDS: METOPROLOL TARTRATE 50MG TABLET PO SCH ×2 (08:58→21:17)
[2022-12-02] MEDS: PANTOPRAZOLE SODIUM 40 MG/VIAL IV SCH (08:58)
[2022-12-02] MEDS: ENOXAPARIN 30MG/0.3ML SYR SUBCUT SCH (08:59)
[2022-12-02] MEDS ORDERED: LEVO-65 MT (09:47)
[2022-12-02] MEDS ORDERED: LIDOCAINE HCL 1% 10 MG/ML 10ML VIAL ONE (10:30)
[2022-12-02] MEDS ORDERED: METO-539 PO (10:33)
[2022-12-02] MEDS ORDERED: AMI2 PO (10:33)
[2022-12-02 11:32] LABS: INR 1.1; PARTIAL THROMBOPLASTIN TIME 36.7 sec (23.4-31.0); PROTHROMBIN TIME 11.9 sec (9.6-11.0)
[2022-12-02] MEDS: CEFEPIME 1,000 MG in DEXTROSE 5% WATER 50 ML IV SCH ×2 (14:52→17:45)
[2022-12-03] VITALS: BP 145/76; PULSE 57; RESP 18; TEMP 97.9
[2022-12-03 04:00] VITALS: BP 145/76; PULSE 59; RESP 18; TEMP 98.2
[2022-12-03 05:21] LABS: ANISOCYTOSIS 1+; PLATELET ESTIMATE NORMAL
[2022-12-03 08:00] VITALS: BP 118/81; PULSE 64; RESP 18; RESP 20; TEMP 96
[2022-12-03 09:21] VITALS: PULSE 64
[2022-12-03] MEDS: METOPROLOL TARTRATE 50MG TABLET PO SCH (09:21)
[2022-12-03] MEDS: AMIODARONE HCL 200 MG TABLET PO SCH (09:21)
[2022-12-03] MEDS: PANTOPRAZOLE SODIUM 40 MG/VIAL IV SCH (09:21)
[2022-12-03] MEDS: CLONIDINE 0.2MG TABLET PO SCH (09:21)
[2022-12-03] MEDS: ENOXAPARIN 30MG/0.3ML SYR SUBCUT SCH (09:22)
[2022-12-03] MEDS ORDERED: DESMOPRESSIN ACETATE IVPB 20 MCG in SODIUM CHLORIDE 0.9% 50 ML IV SCH (10:00)
[2022-12-03 12:05] LABS: BASOPHILS % 1.1 % (0.0-2.0); EOSINOPHILS % 2.2 % (0.0-5.0); HEMATOCRIT. 30.1 % (42.0-52.0); HEMOGLOBIN. 9.6 g/dL (14.0-18.0); LYMPHOCYTES % 8.7 % (20.0-50.0); MEAN CORPUSCULAR HEMOGLOBIN 29.3 pg (28.0-32.0); MEAN CORPUSCULAR HGB CONC 31.8 g/dL (31.0-37.0); MEAN CORPUSCULAR VOLUME 92.1 fL (80.0-94.0); MONOCYTES % 13.8 % (2.0-8.0); NEUTROPHILS % 74.2 % (40.0-76.0); RED BLOOD CELL COUNT 3.26 mill/uL (4.7-6.1); RED CELL DISTRIBUTION WIDTH 17.9 % (11.6-14.6); WHITE BLOOD COUNT 8.5 x1000/uL (4.5-11.0)
[2022-12-03 12:09] LABS: POTASSIUM 4.9 mEq/L (3.5-5.1)
[2022-12-03 12:20] LABS: DIFFERENTIAL COMMENT 1; PLATELET 178 x1000/uL (130-400)
== END 2022-12-03 13:20 | disposition home health service (06) | DRG 314 ==
LOC: ER 19:43 → MICUSO 22:22 → 8WST 11-28 01:15
PROVIDERS: ADMIT Internal Medicine; ATTEND Internal Medicine
PROC: 5A1D70Z Performance of Urinary Filtration, Intermittent, Less than 6 Hours Per Day (ICD-10-PCS; 2022-11-29)
PROC: 5A1D70Z Performance of Urinary Filtration, Intermittent, Less than 6 Hours Per Day (ICD-10-PCS; 2022-12-01)
PROC: 02HV33Z Insertion of Infusion Device into Superior Vena Cava, Percutaneous Approach (ICD-10-PCS; principal; 2022-12-02)
PROC: B548ZZA Ultrasonography of Superior Vena Cava, Guidance (ICD-10-PCS; 2022-12-02)
PROC: 0JPT3XZ Removal of Tunneled Vascular Access Device from Trunk Subcutaneous Tissue and Fascia, Percutaneous Approach (ICD-10-PCS; 2022-12-02)
PROC: 05PY33Z Removal of Infusion Device from Upper Vein, Percutaneous Approach (ICD-10-PCS; 2022-12-02)
DX: T80.211A Bloodstream infection due to central venous catheter, initial encounter (principal); A41.50 Gram-negative sepsis, unspecified; E43 Unspecified severe protein-calorie malnutrition; N18.6 End stage renal disease; I47.1 Supraventricular tachycardia; I50.20 Unspecified systolic (congestive) heart failure; I42.9 Cardiomyopathy, unspecified; I13.2 Hypertensive heart and chronic kidney disease with heart failure and with stage 5 chronic kidney disease, or end stage renal disease; Z68.22 Body mass index [BMI] 22.0-22.9, adult; E87.5 Hyperkalemia; I48.91 Unspecified atrial fibrillation; E11.22 Type 2 diabetes mellitus with diabetic chronic kidney disease; D63.1 Anemia in chronic kidney disease; Y84.8 Other medical procedures as the cause of abnormal reaction of the patient, or of later complication, without mention of misadventure at the time of the procedure; Z99.2 Dependence on renal dialysis
CPT/HCPCS: 36415; 36556; 36589; 70551; 71045; 76937; 80048; 80051; 80053; 82550; 82553; 83036; 83605; 83735; 84100; 84145; 84439; 84443; 84484; 85025; 85027; 86705; 86709; 86803; 87077; 87186; 87340; 90935; 93005; 93306; 97162; 97166; 97530; 99291; C1752; C9113; J0692; J1650; J2543; J2597; J3370; J3475; J3490; J7030; J7060

== ENCOUNTER 2024-01-28 16:32 | Emergency (ER) | payer MEDICARE, MEDICAID ==
[~2024-01-28] VITALS: Ht 182.9 cm; Wt 87.0 kg
[~2024-01-28 16:32] MED LIST changes: +AMOX1TAB16 MT; -APIX2.5T MT; -AZIT250T12 PO; -CARV25TA47 MT; +CEL200 MT; -CELE200C MT; +COR12 PO; -HYDR-4135 MT; +HYDR50TA40 MT; +LEVO-65 MT; -LOSA100T33 PO; +LOSA50TA41 PO; +SULF1TAB48 MT
[2024-01-28 16:35] VITALS: O2SAT 98
[2024-01-28] MEDS ORDERED: LIDOCAINE HCL 1%/EPI 1:200,000 30 ML VIAL MC ONE (17:00)
[2024-01-28 17:55] LABS: BASOPHILS % 0.7 % (0.0-2.0); HEMATOCRIT. 33.8 % (42.0-52.0); MEAN CORPUSCULAR HEMOGLOBIN 32.3 pg (28.0-32.0); MEAN CORPUSCULAR HGB CONC 32.5 g/dL (31.0-37.0); MEAN CORPUSCULAR VOLUME 99.3 fL (80.0-94.0); MEAN PLATELET VOLUME 8.5 fl (7.4-10.4); MONOCYTES % 9.2 % (2.0-8.0); NEUTROPHILS % 76.1 % (40.0-76.0); PLATELET 164 x1000/uL (130-400); RED BLOOD CELL COUNT 3.41 mill/uL (4.7-6.1); RED CELL DISTRIBUTION WIDTH 21.5 % (11.6-14.6); WHITE BLOOD COUNT 5.9 x1000/uL (4.5-11.0)
[2024-01-28 18:01] LABS: CARBON DIOXIDE 27 mEq/L (21-32); CHLORIDE 105 mEq/L (98-107); POTASSIUM 5.4 mEq/L (3.5-5.1); SODIUM 141 mEq/L (136-145)
[2024-01-28 18:02] LABS: CALCIUM 8.7 mg/dL (8.7-10.4)
[2024-01-28 18:04] LABS: PROTHROMBIN TIME 11.5 sec (9.6-11.0)
[2024-01-28] MEDS: LIDOCAINE 1%/EPI 1:200,000 10 ML VIAL IJ NR (18:06)
[2024-01-28 18:07] LABS: GLUCOSE 88 mg/dL (70-105); UREA NITROGEN BLOOD 38 mg/dL (9-23)
[2024-01-28 18:08] LABS: ALANINE AMINOTRANSFERASE < 7 IU/L (10-49); ALBUMIN 3.9 g/dL (3.2-4.8); ASPARTATE AMINOTRANSFERASE 11 IU/L (<34)
[2024-01-28 18:09] LABS: BILIRUBIN DIRECT 0.1 mg/dL (<=3.0); BILIRUBIN TOTAL 0.4 mg/dL (0.1-1.0); PROTEIN TOTAL 7.4 g/dL (6.0-8.3)
[2024-01-28 18:29] LABS: CREATININE 11.3 mg/dL (0.6-1.3); TROPONIN I HIGH SENSITIVITY 86 ng/L (3.0-53)
[2024-01-28 20:12] VITALS: BP 158/101; PULSE 69; RESP 15; TEMP 36.89184; O2SAT 96
== END 2024-01-28 20:16 | disposition home or self-care (01) ==
LOC: ER 16:32
DX: T82.838A Hemorrhage due to vascular prosthetic devices, implants and grafts, initial encounter (principal); I12.0 Hypertensive chronic kidney disease with stage 5 chronic kidney disease or end stage renal disease; N18.6 End stage renal disease; Z79.899 Other long term (current) drug therapy; Z99.2 Dependence on renal dialysis; X58.XXXA Exposure to other specified factors, initial encounter; Y93.89 Activity, other specified; Y92.89 Other specified places as the place of occurrence of the external cause; Y99.8 Other external cause status
CPT/HCPCS: 36415; 71045; 80048; 80076; 84484; 85025; 86850; 86900; 93005; 99285; J3490

== ENCOUNTER 2024-04-05 13:14 | Emergency (ER) | payer MEDICARE, OTHER ==
[~2024-04-05] VITALS: Ht 182.9 cm; Wt 75.0 kg
[~2024-04-05 13:14] MED LIST changes: -AMOX1TAB16 MT; -CEL200 MT; -LEVO-65 MT; -P20 PO; -SULF1TAB48 MT
[2024-04-05] MEDS: LIDOCAINE HCL/EPINEPHRINE 1%-EPI 1:100,000 20ML VIAL INFIL ONE (14:31)
[2024-04-05] MEDS: TRANEXAMIC ACID 1,000MG/10ML TP ONE (14:35)
[2024-04-05 14:51] LABS: EOSINOPHILS % 5.1 % (0.0-5.0); HEMOGLOBIN. 10.1 g/dL (14.0-18.0); LYMPHOCYTES % 8.1 % (20.0-50.0); MEAN CORPUSCULAR HEMOGLOBIN 30.8 pg (28.0-32.0); MEAN CORPUSCULAR HGB CONC 31.5 g/dL (31.0-37.0); MEAN CORPUSCULAR VOLUME 97.8 fL (80.0-94.0); MEAN PLATELET VOLUME 7.9 fl (7.4-10.4); MONOCYTES % 10.5 % (2.0-8.0); NEUTROPHILS % 75.3 % (40.0-76.0); PLATELET 232 x1000/uL (130-400); RED BLOOD CELL COUNT 3.27 mill/uL (4.7-6.1); RED CELL DISTRIBUTION WIDTH 18.4 % (11.6-14.6); WHITE BLOOD COUNT 5.9 x1000/uL (4.5-11.0)
[2024-04-05 15:03] LABS: POTASSIUM 4.4 mEq/L (3.5-5.1)
[2024-04-05 15:04] LABS: CALCIUM 8.3 mg/dL (8.7-10.4)
[2024-04-05 15:39] LABS: CREATININE 8.5 mg/dL (0.6-1.3)
[2024-04-05] MEDS: DESMOPRESSIN ACETATE IVPB 30 MCG in SODIUM CHLORIDE 0.9% 50 ML IV ONE (15:50)
[2024-04-05 18:48] VITALS: BP 131/84; PULSE 84; RESP 17; TEMP 37.05852; O2SAT 99
== END 2024-04-05 18:48 | disposition home or self-care (01) ==
LOC: ER 13:14
DX: T82.838A Hemorrhage due to vascular prosthetic devices, implants and grafts, initial encounter (principal); I12.0 Hypertensive chronic kidney disease with stage 5 chronic kidney disease or end stage renal disease; N18.6 End stage renal disease; Z99.2 Dependence on renal dialysis; Z79.899 Other long term (current) drug therapy; Y92.89 Other specified places as the place of occurrence of the external cause
CPT/HCPCS: 99284; 96365; 80048; 85025; 36415; J2597; 12001